=== PATIENT | male | born 1940 | race Caucasian/White ===

== ENCOUNTER 2016-05-02 11:08 | Emergency (ER) | payer OTHER ==
[2016-05-02 11:25] VITALS: BP 142/78; PULSE 70; RESP 16; TEMP 97.5; O2SAT 96
--- NOTE | 2016-05-02 12:37 | UCPHY ---
H & P Time Seen by Provider: 05/02/16 12:19 Patient Type: New HPI/ROS: This patient reports 1st metatarsophalangeal joint pain and swelling reminiscent of a gout episode he had 18 years ago. He reports the current intensity of the pain is 7/10. Pain is but worse with walking and no other exacerbating or alleviating factors are noted. Symptoms started 4 days ago. He has no other associated symptoms. ROS: No fevers. No other constitutional symptoms HEENT: No complaints cardiovascular: No complaints musculoskeletal: No other musculoskeletal complaints 7 point ROS is otherwise negative. Past Medical/Surgical History: Remote history of gout Atrial fibrillation on Eliquis Social History: Patient does eat me to regularly and has a glass of red wine daily. He also had shellfish last night Smoking Status: Former smoker Physical Exam: Physical Exam Vital signs are normal. General: No acute distress Eyes: Pupils equal and react to light. Extraocular motions are intact. Lungs: No respiratory distress. Cardiac: Brisk capillary refill is intact throughout. Pulses are 2+ and symmetric in the affected extremity. Skin: No rash or pallor. Extremities notable for left foot exam Left foot: Patient has moderate swelling of the 1st metatarsophalangeal joint with mild erythema and mild warmth to touch. Symptoms worsen with movement of the great toe. Neuro: Alert and oriented x3 with no sensorimotor deficits. Initial differential diagnosis: Acute gouty attack, in pseudogout, septic joint Constitutional: Initial Vital Signs Temperature (C) 36.4 C 05/02/16 11:22 Heart Rate 70 05/02/16 11:22 Respiratory Rate 16 05/02/16 11:22 Blood Pressure 142/78 H 05/02/16 11:22 O2 Sat (%) 96 05/02/16 11:22 O2 Delivery Mode Room Air Allergies/Adverse Reactions: No Known Allergies Allergy (Verified 05/02/16 11:20) Home Medications: Medication Instructions Recorded Aspirin 04/07/15 Ambien PRN 08/26/15 Cartia Xt 08/26/15 Losartan Potassium 08/26/15 Sertraline HCl 08/26/15 Atorvastatin Calcium 05/02/16 Eliquis 05/02/16 predniSONE 60 mg PO DAILY #10 tab 05/02/16 MDM/Departure - MDM ED Course/Re-evaluation: This patient appears clinically well with symptoms classic for gout in the setting of patient with prior gout and indulgence in shellfish, red meat and wine. I do not think there is significant evidence for septic joint or other concerning findings. Colchicine is contraindicated due to interaction with his diltiazem. Indocin is contraindicated due to interaction with per Pradaxa. Will therefore treat him with prednisone. I counseled regarding this - Depart Disposition: Home, Routine, Self-Care Clinical Impression: Gout attack Qualifiers: Gout site: foot Gout etiology: idiopathic Laterality: left Qualifier Code: ( M10.072) Idiopathic gout, left ankle and foot Instructions: Low Purine Diet (ED), Gout (ED) Additional Instructions: Diagnosis: Gout attack Plan: Decrease your meat intake Stop drinking red wine until symptoms resolve Drink plenty fluids Prednisone as prescribed Tylenol in addition for pain if needed Follow up with her primary care physician for any ongoing symptoms Return for any significant worsening despite the treatment plan Prescriptions: predniSONE 60 mg PO DAILY #10 tab Referrals: Salas Santiago DO [Primary Care Provider] - As per Instructions - PQRS PQRS Measurement: 134: Depression screening and followup, PRIME MD-PHQ2 (12 years and older) Over the last 2 weeks, how often have you been bothered by any of the following problems? 1. Feeling down, depressed, or hopeless? 2. Little interest or pleasure in doing things? Patient answered no to both 1 and 2 130: Documentation of medications. Reviewed all patient medications, doses, route and frequency. 226: Do you smoke? [No.] 47: 65 and older: Advanced care planning. Patient designates surrogate decision maker as spouse. 51: 18 years old and older with diagnosis of COPD, spirometry performance. NA 52: 18 years old and older with COPD and symptoms of COPD or FEV1<60% predicted prescribed a B Agonist. NA
== END 2016-05-02 12:50 | disposition home or self-care (01) ==
LOC: CED 11:08
DX: M10.072 Idiopathic gout, left ankle and foot (principal); I48.91 Unspecified atrial fibrillation; Z79.01 Long term (current) use of anticoagulants; Z87.891 Personal history of nicotine dependence
CPT/HCPCS: G0463-PO

== ENCOUNTER → 2016-09-16 | Outpatient (CLI) | payer OTHER | LOC: BHFA 10:00 | PROVIDERS: ATTEND Internal Medicine Cardiovascular Disease | DX: I48.91 Unspecified atrial fibrillation (principal) ==

== ENCOUNTER → 2017-07-08 | Outpatient (CLI) | payer OTHER | LOC: CIMAGING 11:36 | PROVIDERS: ATTEND Family Medicine | DX: M25.851 Other specified joint disorders, right hip (principal); M25.852 Other specified joint disorders, left hip | CPT/HCPCS: 73521-PO ==

== ENCOUNTER 2017-08-08 09:27 | Observation (INO) | payer OTHER ==
[2017-08-08] MEDS ORDERED: PANTOPRAZOLE SODIUM 40 MG VIAL IVP ONE (09:53)
[2017-08-08] MEDS ORDERED: NS 500 ML IV ONE ×2 (09:53→10:44)
[2017-08-08 09:57] LABS: PLATELET COUNT 149 10^3/uL (150-400)
--- NOTE | 2017-08-08 10:06 | EDPHY ---
H & P Time Seen by Provider: 08/08/17 09:52 HPI/ROS: HPI Lightheaded, low blood pressure. 77-year-old male by private vehicle with family. His daughter who accompanies him is a nurse. The patient reports that on Tuesday he had black tarry stools. He is on Eliquis, twice daily for atrial fibrillation without valvular disease. He reports he stopped taking his Eliquis Tuesday evening and this improved but reports his stool was somewhat blackish through the weekend. He started taking his Eliquis again last night and then again this morning. This morning he presents with complaint of lightheadedness which is worse with standing from sitting and a low blood pressure reading at home he reports he had a bowel movement of black tarry stool. He brought a sample with him. Denies any gross rectal bleeding. No associated nausea and vomiting. He has been eating normally. No other complaints. ROS: Constitutional: No fever, no chills. No weakness. Eyes: No discharge. No changes in vision. ENT: No sore throat. No nasal congestion or rhinorrhea. Respiratory: No cough. No shortness of breath. Cardiac: No chest pain, no palpitations. Gastrointestinal: No abdominal pain, no vomiting, no diarrhea. As above. Genitourinary: No hematuria. No dysuria or increased frequency with urination. Musculoskeletal: No back pain. No neck pain. No myalgias or arthralgias. Skin: No rashes. Neurological: No headache. No focal weakness or altered sensation. Past medical history: Atrial fibrillation without valvular disease, on Eliquis. Dr. Santiago is his primary care physician. Social history: Nonsmoker. No alcohol. Here with family. Physical Exam: General Appearance: Alert, no distress. This patient is responding to questions appropriately and in full sentences. This patient appears well- hydrated and well-nourished. Eyes: Pupils equal and round no pallor or injection. No lid edema, erythema or injection. Respiratory: There are no retractions, lungs are clear to auscultation with good air movement bilaterally. Cardiovascular: Regular rate and rhythm. No murmur. Gastrointestinal: Abdomen is soft and nontender, no masses, bowel sounds normal. No focal tenderness at McBurney's point. No Minaya sign. Neurological: Motor sensory function is grossly intact. Cranial nerves are normal. Gait is normal. Skin: Warm and dry, no rashes. Musculoskeletal: Neck is supple and nontender. Extremities are symmetrical. All joints range without pain or impingement. Psychiatric: No agitation. No depression. Database: EKG: EKG time is 10:20 a.m.; EKG shows a narrow complex atrial fibrillation with ventricular rate average of 77. Borderline R-wave progression in anterior precordial leads. The QRS, QT intervals are within normal limits. There are no ST-T wave changes indicative of ischemic or injury pattern. No evidence of right heart strain. Interpreted by me. Imaging: Procedures: Emergency department course: IV placed x2. Vital signs reviewed. Initial blood pressure is 83/52. Vital signs otherwise normal. Heart rate is 79 and he is afebrile. Abdominal exam is benign. Stool sample is melenic. Sent for occult blood testing. Patient typed and screened. He will be given Protonix IV 80 mg initially then 40 mg q.6 hours. He will be started on IV normal saline with 500 cc bolus given initially. 10:00 a.m., initial H&H is 8.7/26. Hospitalist paged for transfer and admission. 10:10 a.m., spoke with hospitalist, patient accepted for admission by Dr. Sharon Rowan. He will be admitted to the step-down unit initially. He will be transferred by ambulance. This plan was discussed with him and his family. All of their questions were answered. 10:45 a.m., patient re-evaluated, resting comfortably at this time. Blood pressure is currently 95/56. monitoring manager shows a narrow complex rhythm with ventricular rate average of 67. He has no complaints currently. He will be given an additional 500 cc of IV normal saline over the next hour. Waiting on ambulance transfer. 11:00 a.m., blood pressure 110/73. Patient is stable for transfer by ambulance. I have filled out the appropriate transfer paperwork. Patient transferred in stable condition to [facility]. Differential Diagnosis: The differential diagnosis on this patient includes but is not limited to upper gastrointestinal bleeding, on anticoagulant medication. Hemorrhoids, diverticulosis, lower GI source unlikely. This represents a partial list of diagnoses considered. These considerations are based on history, physical exam , past history, reassessment and diagnostic testing. Smoking Status: Former smoker Constitutional: Initial Vital Signs Temperature (C) 36.9 C 08/08/17 09:40 Heart Rate 79 08/08/17 09:40 Respiratory Rate 18 08/08/17 09:40 Blood Pressure 83/52 L 08/08/17 09:40 O2 Sat (%) 97 08/08/17 09:40 O2 Delivery Mode Room Air Allergies/Adverse Reactions: No Known Allergies Allergy (Verified 08/08/17 09:38) Home Medications: Medication Instructions Recorded Aspirin 04/07/15 Ambien PRN 08/26/15 Cartia Xt 08/26/15 Losartan Potassium 08/26/15 Sertraline HCl 08/26/15 Atorvastatin Calcium 05/02/16 Eliquis 05/02/16 Medical Decision Making - Data Points Laboratory Results: Laboratory Results 08/08/17 09:54 08/08/17 09:54 08/08/17 08/08/17 08/08/17 09:54 09:54 09:30 WBC 6.81 10^3/uL 10^3/uL (3.80-9.50) RBC 2.67 10^6/uL L 10^6/uL (4.40-6.38) Hgb 8.7 g/dL L g/dL (13.7-17.5) Hct 26.0 % L % (40.0-51.0) MCV 97.4 fL fL (81.5-99.8) MCH 32.6 pg pg (27.9-34.1) MCHC 33.5 g/dL g/dL (32.4-36.7) RDW 14.5 % % (11.5-15.2) Plt Count 149 10^3/uL L 10^3/uL (150-400) MPV 9.8 fL fL (8.7-11.7) Neut % (Auto) 66.3 % % (39.3-74.2) Lymph % (Auto) 21.6 % % (15.0-45.0) [place] % (Auto) 10.4 % % (4.5-13.0) Eos % (Auto) 0.7 % % (0.6-7.6) Baso % (Auto) 0.6 % % (0.3-1.7) Nucleat RBC Rel Count 0.0 % % (0.0-0.2) Absolute Neuts (auto) 4.51 10^3/uL 10^3/uL (1.70-6.50) Absolute Lymphs (auto) 1.47 10^3/uL 10^3/uL (1.00-3.00) Absolute Monos (auto) 0.71 10^3/uL 10^3/uL (0.30-0.80) Absolute Eos (auto) 0.05 10^3/uL 10^3/uL (0.03-0.40) Absolute Basos (auto) 0.04 10^3/uL 10^3/uL (0.02-0.10) Absolute Nucleated RBC 0.00 10^3/uL 10^3/uL (0-0.01) Immature Gran % 0.4 % % (0.0-1.1) Immature Gran # 0.03 10^3/uL 10^3/uL (0.00-0.10) PT INR APTT Sodium 142 mEq/L mEq/L (135-145) Potassium 4.2 mEq/L mEq/L (3.3-5.0) Chloride 107 mEq/L mEq/L (97-110) Carbon Dioxide 24 mEq/l mEq/l (22-31) Anion Gap 11 mEq/L mEq/L (8-16) BUN 33 mg/dL H mg/dL (7-23) Creatinine 1.2 mg/dL mg/dL (0.7-1.3) Estimated GFR 59 Glucose 123 mg/dL H mg/dL (70-100) Calcium 8.7 mg/dL mg/dL (8.5-10.4) Total Bilirubin 0.4 mg/dL mg/dL (0.1-1.4) Conjugated Bilirubin 0.3 mg/dL mg/dL (0.0-0.5) Unconjugated Bilirubin 0.1 mg/dL mg/dL (0.0-1.1) AST 15 IU/L L IU/L (17-59) ALT 20 IU/L L IU/L (21-72) Alkaline Phosphatase 54 IU/L IU/L (38-126) Total Protein 6.1 g/dL L g/dL (6.3-8.2) Albumin 3.3 g/dL L g/dL (3.5-5.0) Patient ABO/Rh Pending Antibody Screen Pending 08/08/17 09:30 WBC RBC Hgb Hct MCV MCH MCHC RDW Plt Count MPV Neut % (Auto) Lymph % (Auto) [place] % (Auto) Eos % (Auto) Baso % (Auto) Nucleat RBC Rel Count Absolute Neuts (auto) Absolute Lymphs (auto) Absolute Monos (auto) Absolute Eos (auto) Absolute Basos (auto) Absolute Nucleated RBC Immature Gran % Immature Gran # PT 16.1 SEC H SEC (12.0-15.0) INR 1.31 H (0.83-1.16) APTT 35.0 SEC SEC (23.0-38.0) Sodium Potassium Chloride Carbon Dioxide Anion Gap BUN Creatinine Estimated GFR Glucose Calcium Total Bilirubin Conjugated Bilirubin Unconjugated Bilirubin AST ALT Alkaline Phosphatase Total Protein Albumin Patient ABO/Rh Antibody Screen Medications Given: Discontinued Medications Sodium Chloride (Ns) 500 mls @ 0 mls/hr IV EDNOW ONE; Wide Open PRN Reason: Protocol Stop: 08/08/17 09:54 Last Admin: 08/08/17 10:00 Dose: 500 mls Sodium Chloride (Ns) 500 mls @ 0 mls/hr IV EDNOW ONE; Wide Open PRN Reason: Protocol Stop: 08/08/17 10:45 Last Admin: 08/08/17 10:56 Dose: 500 mls Pantoprazole Sodium (Protonix) 80 mg IVP EDNOW ONE Stop: 08/08/17 09:54 Last Admin: 08/08/17 10:00 Dose: 80 mg Departure - Departure Disposition: [facility] Clinical Impression: Anemia, Gastrointestinal bleeding, upper, Hypotension
--- NOTE | 2017-08-08 10:22 | CPEKG ---
Heart Rate: 77 RR Interval: 779 QRSD Interval: 84 QT Interval: 408 QTC Interval: 462 QRS [place]: -11 T Wave [place]: 22 EKG Severity - ABNORMAL ECG - EKG Impression: ATRIAL FIBRILLATION, V-RATE 56-97 EKG Impression: PROBABLE INFERIOR INFARCT, AGE INDETERMINATE EKG Impression: BORDERLINE R WAVE PROGRESSION, ANTERIOR LEADS Electronically Signed By: Qi Cantor 08-Aug-2017 11:10:54
[2017-08-08 10:32] LABS: INR 1.31 (0.83-1.16); PROTIME(PATIENT) 16.1 SEC (12.0-15.0)
[2017-08-08] MEDS ORDERED: ONDANSETRON DISINTEGRATING 4 MG TAB PO PRN (13:50)
[2017-08-08] MEDS ORDERED: ONDANSETRON 4 MG/2 ML VIAL IVP PRN (13:50)
[2017-08-08] MEDS ORDERED: HYDROCODONE/APAP 5/325 TAB PO PRN (13:50)
[2017-08-08] MEDS ORDERED: ACETAMINOPHEN 325 MG TAB PO PRN (13:50)
[2017-08-08] MEDS: NS 1,000 ML IV SCH (14:00)
[2017-08-08 14:25] LABS: PLATELET COUNT 126 10^3/uL (150-400)
[2017-08-08] MEDS ORDERED: PANTOPRAZOLE SODIUM 40 MG VIAL IVP SCH (15:53)
[2017-08-08] MEDS ORDERED: ZOLPIDEM TARTRATE 5 MG TAB PO PRN (17:22)
--- NOTE | 2017-08-08 18:04 | GHP ---
[f rep st] HISTORY AND PHYSICAL DATE OF ADMISSION: 08/08/2017 CHIEF COMPLAINT: Black stools. HISTORY OF PRESENT ILLNESS: The patient is a pleasant 77-year-old gentleman with a past medical hist ory of atrial fibrillation, currently on Eliquis for anticoagulation who started noticing dark colore d loose stools approximately 3 days prior to coming into the hospital. He recognized that this could indicate an intestinal bleed, so he stopped taking Eliquis and the darkness of the stools seemed to subside. He subsequently then did resume Eliquis 1 day prior to coming into the hospital today. He states early this morning, he started feeling quite lightheaded when he was trying to ambulate. He c hecked his blood pressures at home and had systolic blood pressure readings in the 70s. At that poin t time, he presented to [facility] for further evaluation. His initial blood work was notable for hemoglobi n of 8.7. His hemoglobin previously has been documented within the normal range. Hemoccult was posi tive as well. Fortunately, his blood pressure did respond to IV fluids, and after stabilization, he was then transferred to [facility] for further evaluation and treatment. The patient has been having recent back pain and recently underwent a steroid injection. He does sta te that he has been taking Aleve regularly over the past couple of weeks to address this pain. PAST MEDICAL HISTORY: 1. Atrial fibrillation. 2. Hypertension. 3. Hyperlipidemia. 4. Depression, anxiety. PAST SURGICAL HISTORY: Appendectomy. MEDICATIONS: This medication list is taken from his ambulatory orders list. 1. Aspirin 81 mg daily. 2. Eliquis 5 mg daily. 3. Atorvastatin 80 mg nightly. 4. Diltiazem ER 120 mg daily. 5. Losartan 25 mg nightly. 6. Sertraline 75 mg daily. 7. Trazodone 75 mg nightly. 8. Zolpidem 5 mg nightly as needed. ALLERGIES: No known drug allergies. FAMILY HISTORY: Mother and father both of uncertain causes. SOCIAL HISTORY: The patient is currently . He has several children. His daughter who is wit h him at the bedside today is a registered nurse. He is a nonsmoker. CODE STATUS: Full code status. REVIEW OF SYSTEMS: CONSTITUTIONAL: No complaints of any fevers or chills. ENT: No recent upper re spiratory illnesses. CARDIOVASCULAR: No complaints of any chest pains, palpitations, or syncopal ep isodes, but he did have lightheadedness. RESPIRATORY: He does feel somewhat more short of breath wi th exertion today. No productive cough. GI: No complaints of any focal abdominal pains. No nausea or vomiting. Positive for black stools. No bloody stools. : No reports of any difficulty with urination. NEUROLOGIC: No complaints of any headaches or focal weakness. HEMATOLOGIC: No history of any bleeding complications previously. No deep vein thrombosis or pulmonary emboli. PSYCHIATRIC: He is currently on SSRI therapy. ENDOCRINE: No history of polyuria or heat intolerance. SKIN: N o new skin rashes or petechia. MUSCULOSKELETAL: No new focal pains today, but he has been having re cent low back and hip pain. PHYSICAL EXAMINATION: VITAL SIGNS: Temperature 36.7, blood pressure on initial presentation to [facility] was 83/52, which did improve to most recently at 133/78, heart rate 60, respirat ions 12, saturating 100% on room air. GENERAL: The patient appears comfortable. He is sitting in a chair at the bedside visiting with family. He is awake, alert, conversant, in no acute distress. H EENT: Extraocular movements appear intact. No scleral icterus is noted. NECK: No thyroid enlargem ent appreciated. CHEST: Clear on auscultation with normal respiratory effort. HEART: Irregularly irregular. No significant murmur is appreciated. ABDOMEN: Soft, nontender, nondistended. Normal b owel sounds. : No Moya catheter in place. EXTREMITIES: No significant pitting edema or calf pa in with palpation noted. NEUROLOGIC: Cranial nerves 2-12 appear grossly intact with 5/5 strength in all extremities LABORATORY DATA: White blood cell count 6, hemoglobin 8.7, which has decreased to 7.7 upon recheck h ere, platelets are 149. Sodium 142, potassium 4.2, chloride 107, bicarb 24, BUN 33, creatinine 1.2, glucose 123. PTT 35, INR 1.3. Hemoccult positive. AST 15, ALT 20, alkaline phosphatase 54, bilirub in 0.4. ASSESSMENT/PLAN: 1. Gastrointestinal bleed. Suspecting upper gastrointestinal bleed and likely precipitated by recen t nonsteroidal anti-inflammatory drug use, along with current use of aspirin and Eliquis. I reviewed the case with Dr. Damon. The tentative plan is for endoscopy tomorrow on 08/09 unless he becomes uns table or starts having grossly bloody stools. Fortunately, he is more hemodynamically stable with bl ood pressures up in the 130 range. I will recheck a hemoglobin at midnight tonight. Otherwise, he h as been started on intravenous Protonix and is n.p.o. in anticipation of endoscopy tomorrow. 2. Acute blood-loss anemia. Pending a repeat hemoglobin at midnight tonight. 3. Hypotension, improved. Continue with intravenous fluids overnight. 4. Atrial fibrillation. Patient is on diltiazem for rate control and Eliquis for anticoagulation. Both of these are on hold currently in light of bleeding and hypotension. 5. Hypertension. We will continue to hold diltiazem, along with losartan. 6. Hyperlipidemia. Patient takes atorvastatin in the outpatient setting. 7. Depression, anxiety. I have written to continue with Zoloft once he has a diet in place. 8. Deep venous thrombosis prophylaxis. Compression devices while immobile. Otherwise, hold heparin or Lovenox. DISPOSITION: I will admit him under observation status. /[id number]/MODL
[2017-08-08] MEDS ORDERED: ATORVASTATIN CALCIUM 40 MG TAB PO SCH (21:00)
[2017-08-08] MEDS ORDERED: traZODone 50 MG TAB PO SCH (21:00)
[2017-08-08] MEDS: PANTOPRAZOLE SODIUM 40 MG VIAL IVP SCH (21:39)
[2017-08-09] MEDS: NS 1,000 ML IV SCH (03:07)
[2017-08-09 03:21] LABS: PLATELET COUNT 120 10^3/uL (150-400)
[2017-08-09] MEDS ORDERED: LR 1,000 ML IV ONE (06:39)
--- NOTE | 2017-08-09 07:19 | PDANEPAE ---
ANE History of Present Illness EGD ANE Past Medical History - Cardiovascular History Hx Hypertension: Yes Hx Arrhythmias: Yes Hx Chest Pain: No Hx Coronary Artery / Peripheral Vascular Disease: No Hx CHF / Valvular Disease: No Hx Palpitations: No - Pulmonary History Hx COPD: No Hx Asthma/Reactive Airway Disease: No Hx Recent Upper Respiratory Infection: No Hx Oxygen in Use at Home: No Hx Sleep Apnea: No Sleep Apnea Screening Result - Last Documented: Negative - Endocrine History Hx Diabetes: No Hyperthyroid: No Obesity: no - Chronic Pain History Chronic Pain: No ANE Review of Systems Review of Systems: - Exercise capacity METS (RN): 4 METS ANE Patient History - Allergies Allergies/Adverse Reactions: No Known Allergies Allergy (Verified 08/08/17 09:38) - Home Medications Home Medications: Aspirin [Aspirin 81mg (*)] 81 mg PO DAILY 04/07/15 [Last Taken 08/08/17] Diltiazem HCl [Cartia Xt] 120 mg PO HS 08/26/15 [Last Taken 08/07/17] Losartan Potassium [Cozaar 25 mg (*)] 25 mg PO HS 08/26/15 [Last Taken 08/07/17] Sertraline HCl [Zoloft 50mg (*)] 75 mg PO DAILY 08/26/15 [Last Taken 08/08/17] Zolpidem Tartrate [Ambien] 5 mg PO HS PRN 08/26/15 [Last Taken Unknown] Apixaban [Eliquis] 5 mg PO DAILY 05/02/16 [Last Taken 08/08/17] Atorvastatin Calcium [Lipitor 40 mg (*)] 80 mg PO HS 05/02/16 [Last Taken ] Acetaminophen [Tylenol 325mg (*)] 325 mg PO DAILY PRN 08/08/17 [Last Taken 08/08] Hydrocodone/Acetaminophen [Velma 5/325 (*)] 1 each PO Q4-6PRN PRN 08/08/17 [ Last Taken 08/01/17] [place]-3 Fatty Acids [Fish Oil 1000 mg (*)] 1,000 mg PO DAILY 08/08/17 [Last Taken 08/08/17] Psyllium Husk (with Sugar) [Metamucil Packet] 1 each PO HS 08/08/17 [Last Taken 08/07/17] traZODone [traZODONE 50MG (*)] 75 mg PO HS 08/08/17 [Last Taken 08/07/17] - NPO status NPO Since - Liquids (Date): 08/08/17 NPO Since - Liquids (Time): 08:15 NPO Since - Solids (Date): 08/08/17 - Smoking Hx Smoking Status: Former smoker ANE Labs/Vital Signs - Labs Result Diagrams: 08/09/17 03:10 08/09/17 03:10 - Vital Signs Blood Pressure: 154/89 Heart Rate: 99 Respiratory Rate: 14 O2 Sat (%): 96 Height: 172.72 cm Weight: 83.91 kg ANE Physical Exam - Airway Mouth exam: dentures - Pulmonary Pulmonary: no respiratory distress, no rales or rhonchi - Cardiovascular Cardiovascular: irregularly irregular ANE Anesthesia Plan Anesthesia Plan: GA with mask
[2017-08-09] MEDS ORDERED: LIDOCAINE 2% 5 ML SDV ONE (07:23)
[2017-08-09] MEDS ORDERED: PROPOFOL/EMULSION 500 MG/50 ML BOTTLE IV ONE (07:23)
[2017-08-09] MEDS ORDERED: NALOXONE HCL 0.4 MG/ML INJ IVP PRN (07:45)
--- NOTE | 2017-08-09 07:46 | POSTANESTH ---
Post Anesthetic Evaluation Cardiovascular Status: Similar to Pre-Op Cond Respiratory Status: Normal, Stable Level of Consciousness/Mental Status: Can Participate in Eval Pain Control: Adequate, Prn Tx Ordered Nausea/Vomiting Control: Adequate, Prn Tx Ordered Complications Possibly Related to Anesthesia: None Noted
[2017-08-09 08:24] VITALS: BP 122/80
--- NOTE | 2017-08-09 08:27 | GCON ---
[f rep st] CONSULTATION DATE OF CONSULTATION: 08/09/2017 CONSULTING PHYSICIAN: Stanley Archer MD. REASON FOR CONSULT: Melenic stools. CHIEF COMPLAINT: Melenic stools. HISTORY OF PRESENT ILLNESS: Jcarlos is a 77-year-old male with a history of atrial fibrillation on Eliquis, NSAID use who presents to [facility] with complaints of melenic stools as well as weakness. The patient was in his normal state of health until approximately 3 days ago when he noticed that his stools were black in color. Due to this, he stopped his Eliquis with some improvement of his symptoms. He restarted his Eliquis 1 day prior to admission, and then and, noted black, tarry stools. He also had significant fatigue and got lightheaded walking up steps, and thus, came for further evaluation. He denies any exacerbating or alleviating factors to his symptoms. He denies any dysphagia, odynophagia, nausea, vomiting or abdominal pain. His last colonoscopy was approximately 13 years ago in [place]. He denies any chest pain, shortness of breath or prior episodes of GI bleeding. Patient had does take a daily aspirin each day and has been taking Aleve for recent hip pain. I am asked by Dr. Archer to evaluate Jcarlos in consultation regarding his melenic stools. PAST MEDICAL HISTORY: 1. Atrial fibrillation. 2. Hypertension. 3. Hyperlipidemia. 4. Depression. 5. Anxiety. PAST SURGICAL HISTORY: Appendectomy. ALLERGIES: NKDA. MEDICATIONS: 1. Aleve as needed. 2. Aspirin 81 milligrams a day. 3. Eliquis 5 milligrams a day. 4. Atorvastatin 80 milligrams at night. 5. Diltiazem extended release 120 milligrams daily. 6. Losartan 25 milligrams at night. 7. Sertraline 7 milligrams daily. 8. Trazodone 10 milligrams at night. 9. Zolpidem as needed. FAMILY HISTORY: No history of colon polyps or cancer. SOCIAL HISTORY: . Several children. Positive alcohol. No cigarette use. REVIEW OF SYSTEMS: A 14-point comprehensive review of systems was asked. Pertinent positives in the HPI. PHYSICAL EXAM: VITAL SIGNS: Blood pressure 154/89, heart rate 89, temperature is 36.7, respiratory rate is 14. GENERAL: Awake, alert and oriented x3, in no distress. HEENT: Anicteric sclerae. Moist mucosa. NECK: No JVD. CARDIOVASCULAR: Irregular rhythm. No murmurs appreciated. LUNGS: Clear to auscultation bilaterally. ABDOMEN: Soft, nontender, nondistended. Positive bowel sounds. No guarding, no rebound. EXTREMITIES: No clubbing, cyanosis or edema. NEUROLOGIC: Cranial nerves II-XII are grossly intact. PSYCH: Normal affect. SKIN: No rash. MUSCULOSKELETAL: No joint effusions or deformities noted. LYMPH: No lymphadenopathy. BLOOD WORK: WBCs 5.65, hemoglobin 7.7, hematocrit 23.4, platelets 120. INR 1.31. Sodium 145, potassium 4.1, AST 15, ALT 20, total bilirubin 0.4, alkaline phosphatase 54. ASSESSMENT AND PLAN: 1. Melenic stools- on NSAIDs and Eliquis. At this time, I recommend to proceed with upper endoscopy to delineate the cause of his symptoms. Suspect ulcer disease due to his nonsteroidal antiinflammatory use? If negative, would consider colonoscopy as an outpatient. The risks, benefits and alternatives of the procedure were discussed in great detail with the patient. The risks of infection, bleeding, perforation, and sedation were discussed. 2. Screening colonoscopy. Due for screening colonoscopy and recommend as outpatient. 3. Hypertension. 4. Hyperlipidemia. 5. Depression. 6. Anxiety. Thank you much for this consultation. /[id number]/MODL MTDD
[2017-08-09] MEDS: PANTOPRAZOLE SODIUM 40 MG VIAL IVP SCH (08:54)
[2017-08-09] MEDS ORDERED: SERTRALINE HCL 50 MG TAB PO SCH (09:00)
--- NOTE | 2017-08-09 09:55 | ASMTCMCOM ---
CM Note CM Note Notes: Patient admitted for GI bleed. He had an upper endoscopy today; path pending. He is normally independent, lives with , and has supportive children. I don't anticipate any discharge needs, but Case Management available should they arise. Date Signed: 08/09/2017 09:54 AM Electronically Signed By:Silvia Meyers RN
--- NOTE | 2017-08-09 10:50 | GIREPORT ---
[facility] - Endoscopy Department Patient Name: Jcarlos Kyle Procedure Date: 08/09/2017 7:28 AM Patient Type: Inpatient Attending MD/ ER Physician: Murphy Damon MD Procedure: Upper GI endoscopy Indications: Melena Patient Profile: 77 year old male with a history of NSAID use presents for evaluaiton of melena/post hemorrhagic anemia. Providers: Murphy Damon MD Medicines: Monitored Anesthesia Care Complications: No immediate complications. Estimated blood loss: Minimal. Description of Procedure: After obtaining informed consent, the endoscope was passed under direct vision. Throughout the procedure, the patient's blood pressure, pulse, and oxygen saturations were monitored continuously. The Endoscope was intro duced through the mouth, and advanced to the second part of duodenum. The [facility] er GI endoscopy was accomplished without difficulty. The patient tolerated th e procedure well. Findings: The examined esophagus was normal. A hiatal hernia was present. Patchy moderately erythematous mucosa was found in the gastric body and in the gastric antrum. Biopsies were taken with a cold forceps for histolo gy. Two superficial gastric ulcers were found in the gastric antrum. The la rgest lesion was 4 mm in largest dimension. One superficial duodenal ulcer was found in the duodenal bulb. The lesi on was 3 mm in largest dimension. Estimated Blood Loss: Estimated blood loss was minimal. Post Op Diagnosis: - Normal esophagus. - Hiatal hernia. - Erythematous mucosa in the gastric body and antrum. Biopsied. - Gastric ulcers. - One duodenal ulcer. - Etiology? Suspect from small gastic/duodenal ulcers which have healed . Recommend to monitor H/H and transfuse as needed. Avoid NSAIDs. If no m ore bleeding, recommend colonoscopy as outpatient. Recommendation: - Return patient to [facility] for [facility] care. - Await pathology results. - No aspirin, ibuprofen, naproxen, or other non-steroidal anti-inflamma tory drugs. - Use a proton pump inhibitor PO BID. - Perform a colonoscopy at appointment to be scheduled. - Thank you for allowing me to particpate in the care of your patient. Attending Participation: I personally performed the entire procedure. Murphy Damon MD Murphy Damon MD 08/09/2017 10:50:05 AM This report has been signed electronicallyMurphy Damon MD Number of Addenda: 0 Note Initiated On: 08/09/2017 7:28 AM Total Procedure Duration Time 0 hours 5 minutes 39 seconds [email or web address]
[2017-08-09] MEDS ORDERED: HYDROCODONE/APAP 5/325 TAB PO PRN ×2 (11:31→11:38)
--- NOTE | 2017-08-09 15:50 | GDS ---
[f rep st] DISCHARGE SUMMARY DISCHARGE DIAGNOSES: 1. Nonsteroidal anti-inflammatory drug induced gastric ulcers. 2. Upper gastrointestinal bleed. 3. Atrial fibrillation. 4. Acute blood loss anemia. HISTORY OF PRESENT ILLNESS: The patient is a 77-year-old male with a history of atrial fibrillation on Eliquis who had melena for 3 days prior to coming to the hospital. He stopped taking his Eliquis and the darkness of the stool seemed to subside; however, then retook his Eliquis for [address] arted again. He became lightheaded. Blood pressure at home was systolic 70s. He presented to [facility] a nd was noted to be anemic and heme-positive. Blood pressure responded to IV fluids. HOSPITAL COURSE: He was transferred to [facility]. Gastroenterology was consulted a nd he underwent an EGD this morning, which showed gastric ulcerations of various stages of healing as this was most consistent with NSAID induced gastric ulcer. He had recently been taking Aleve for in creased back and hip pain, but was amenable to stopping it. He will be treated with a proton pump in [facility]. At discharge, it is okay for him to restart his Eliquis in a couple of days. DISCHARGE MEDICATIONS: Please see computer record for full detailed list. New medications Protonix 40 mg p.o. twice daily for 2 weeks, then once p.o. daily. ADDITIONAL DISCHARGE INSTRUCTIONS: 1. Stop Aleve. 2. Stop aspirin unless there is a firm indication. 3. Protonix twice daily for 2 weeks and daily thereafter. 4. Urine resume Eliquis in 2 days. Greater than 30 minutes of time spent arranging this discharge. Patient seen examined by me on day o f discharge. /[id number]/MODL
[2017-08-09] MEDS ORDERED: LOSARTAN POTASSIUM 25 MG TAB PO SCH (21:00)
[2017-08-09] MEDS ORDERED: PANTOPRAZOLE SODIUM 40 MG TAB PO SCH (21:00)
[2017-08-09] MEDS ORDERED: PSYLLIUM METAMUCIL 1 PKT PO SCH (21:00)
[2017-08-09] MEDS ORDERED: DILTIAZEM CD 120 MG CAP PO SCH (21:00)
== END 2017-08-09 13:00 | disposition home or self-care (01) ==
LOC: CED 09:27 → INTOOBSV 10:11 → CEDHOLD 10:11 → F2N 11:03
PROVIDERS: ADMIT Internal Medicine; ATTEND Internal Medicine
PROC: 0DB68ZX Excision of Stomach, Via Natural or Artificial Opening Endoscopic, Diagnostic (ICD-10-PCS; principal; 2017-08-08)
DX: K25.9 Gastric ulcer, unspecified as acute or chronic, without hemorrhage or perforation (principal); K92.2 Gastrointestinal hemorrhage, unspecified; I48.91 Unspecified atrial fibrillation; D62 Acute posthemorrhagic anemia; I95.9 Hypotension, unspecified; K44.9 Diaphragmatic hernia without obstruction or gangrene
CPT/HCPCS: 43239; 93005; G0378; J2704; 80053-PO; 82248-PO; 82270-PO; 85610-PO; 85730-PO; 96374

== ENCOUNTER 2017-10-28 06:06 | Day surgery (SDC) | payer OTHER ==
[~2017-10-28 06:06] MED LIST: ROPIVACAINE 0.2% 80 MG, EPINEPHrine 0.2 MG, KETOROLAC TROMETHAMINE 30 MG in SYRINGE 0 ML IU ONE; TRANEXAMIC ACID 3,000 MG in NS (SYRINGE) 50 ML IRR ONE
[2017-10-28] MEDS ORDERED: DEXAMETHASONE 4 MG/ML VIAL IVP ONE (06:15)
[2017-10-28] MEDS ORDERED: ceFAZolin 2 GM/DEXTROSE 100 ML IV ONE (06:15)
[2017-10-28] MEDS ORDERED: ACETAMINOPHEN 325 MG TAB PO ONE (06:15)
[2017-10-28] MEDS ORDERED: FAMOTIDINE 20 MG TAB PO ONE (06:15)
[2017-10-28] MEDS ORDERED: LR 1,000 ML IV ONE (06:16)
[2017-10-28 06:38] VITALS: BP 151/87
--- NOTE | 2017-10-28 07:18 | PDHPUP ---
History & Physical Update H&P update statement: This history and physical update is based on an assessment of the patient which was completed after admission or registration (within 24 hours), but prior to the surgery/procedure. H&P update: changes noted H&P changes: Pt again cut with clippers in pre op and will have to cancel surgery
== END 2017-10-28 08:00 | disposition home or self-care (01) ==
LOC: UNDOADMIN 06:06 → F3N 06:06 → FSGY 06:06 → EDSTATUS 08:15
PROVIDERS: ATTEND Orthopaedic Surgery
DX: M16.12 Unilateral primary osteoarthritis, left hip (principal); Z53.9 Procedure and treatment not carried out, unspecified reason
CPT/HCPCS: J0171; J0690; J1100; J1885; J2795

== ENCOUNTER 2017-11-16 11:07 | Inpatient (IN) | payer OTHER ==
--- NOTE | 2017-11-16 07:12 | PDHPUP ---
History & Physical Update H&P update statement: This history and physical update is based on an assessment of the patient which was completed after admission or registration (within 24 hours), but prior to the surgery/procedure. H&P update: H&P reviewed & patient examined, no change in patient's condition since H&P completed
[~2017-11-16 11:07] MED LIST changes: +TRANEXAMIC ACID 3,000 MG/50 ML BAG IRR ONE
[2017-11-16] MEDS ORDERED: FAMOTIDINE 20 MG TAB PO ONE (11:31)
[2017-11-16] MEDS ORDERED: ACETAMINOPHEN 325 MG TAB PO ONE (11:31)
[2017-11-16] MEDS ORDERED: ceFAZolin 2 GM/DEXTROSE 100 ML IV ONE (11:31)
[2017-11-16] MEDS ORDERED: DEXAMETHASONE 4 MG/ML VIAL IVP ONE (11:31)
[2017-11-16] MEDS ORDERED: LR 1,000 ML IV ONE (11:32)
[2017-11-16] MEDS ORDERED: MIDAZOLAM 2 MG/2 ML VIAL IVP ONE (12:54)
--- NOTE | 2017-11-16 12:54 | PDANEPAE ---
ANE History of Present Illness OA here for L CRUZ ANE Past Medical History - Cardiovascular History Hx Hypertension: Yes Hx Arrhythmias: Yes Hx Chest Pain: No Hx Coronary Artery / Peripheral Vascular Disease: No Hx CHF / Valvular Disease: No Hx Palpitations: No Cardiovascular History Comment: chronic Afib. hypertensive heart disease without heart failure. cardiomyopathy. hyperlipidemia - Pulmonary History Hx COPD: No Hx Asthma/Reactive Airway Disease: No Hx Recent Upper Respiratory Infection: No Hx Oxygen in Use at Home: No Hx Sleep Apnea: No Sleep Apnea Screening Result - Last Documented: Negative - Neurologic History Hx Cerebrovascular Accident: No Hx Seizures: No Hx Dementia: No - Endocrine History Hx Diabetes: No - Renal History Hx Renal Disorders: No - Liver History Hx Hepatic Disorders: No - Neurological & Psychiatric Hx Hx Neurological and Psychiatric Disorders: Yes Neurological / Psychiatric History Comment: generalized anxiety - Cancer History Hx Cancer: No - Congenital Disorder History Hx Congenital Disorders: No - GI History Hx Gastrointestinal Disorders: Yes Gastrointestinal History Comment: GI BLEED 07/2017 W/ENDOSCOPY - Other Health History Other Health History: partial denture upper - Chronic Pain History Chronic Pain: No (L HIP PAIN) - Surgical History Prior Surgeries: endoscopy - GI BLEED. APPENDECTOMY ANE Review of Systems Review of Systems: - Exercise capacity METS (RN): 5 METS ANE Patient History - Allergies Allergies/Adverse Reactions: No Known Allergies Allergy (Verified 11/16/17 11:56) - Home Medications Home Medications: Diltiazem HCl [Cartia Xt] 120 mg PO HS 08/26/15 [Last Taken 11/15/17] Losartan Potassium [Cozaar 25 mg (*)] 25 mg PO HS 08/26/15 [Last Taken 11/15/17] Sertraline HCl [Zoloft 50mg (*)] 75 mg PO DAILY 08/26/15 [Last Taken 11/16/17 08 :00] Apixaban [Eliquis] 5 mg PO BID 05/02/16 [Last Taken 11/12/17] Atorvastatin Calcium [Lipitor 40 mg (*)] 80 mg PO HS 05/02/16 [Last Taken ] Acetaminophen [Tylenol 325mg (*)] 325 mg PO DAILY PRN 08/08/17 [Last Taken 11/16 07:00] Hydrocodone/Acetaminophen [Center Line 5/325 (*)] 1 each PO Q4-6PRN PRN 08/08/17 [ Last Taken 1 Month Ago ~09/27/17] [place]-3 Fatty Acids [Fish Oil 1000 mg (*)] 1,000 mg PO DAILY 08/08/17 [Last Taken 10/26/17] Psyllium Husk (with Sugar) [Metamucil Packet] 1 each PO HS 08/08/17 [Last Taken 11/15/17] traZODone [traZODONE 50MG (*)] 50 - 75 mg PO HS 08/08/17 [Last Taken 11/15/17] Metoprolol Succinate Xr [Toprol Xl 25 mg (*)] 25 mg PO DAILY 09/20/17 [Last Taken 11/16/17 08:00] Tears/Dextran 70/Hypromellose [Natural Balance Tears (*)] 1 drop EACHEYE Q2 PRN 09/20/17 [Last Taken 11/02/17] Zolpidem Tartrate [Ambien 5MG (*)] 5 mg PO HS PRN 11/07/17 [Last Taken 11/12/17] - NPO status NPO Since - Liquids (Date): 11/16/17 NPO Since - Liquids (Time): 10:00 NPO Since - Solids (Date): 11/15/17 NPO Since - Solids (Time): 19:00 - Anes Hx Anes Hx: no prior problems - Smoking Hx Smoking Status: Former smoker - Alcohol Use Alcohol Use: Occasionally - Family Anes Hx Family Anes Hx: none Family Hx Anesthesia Complications: none ANE Labs/Vital Signs - Vital Signs Blood Pressure: 136/93 Heart Rate: 63 Respiratory Rate: 16 O2 Sat (%): 92 Height: 172.27 cm Weight: 83.915 kg ANE Physical Exam - Airway Neck exam: FROM Mallampati Score: Class 2 Mouth exam: normal dental/mouth exam - Pulmonary Pulmonary: no respiratory distress, clear to auscultation - Cardiovascular Cardiovascular: regular rate and rhythym, no murmur, rub, or gallop - ASA Status ASA Status: III ANE Anesthesia Plan Anesthesia Plan: GA with mask, spinal Total IV Anesthesia: Yes
[2017-11-16] MEDS ORDERED: BUPIVACAINE/DEXTROSE 7.5MG/ML 2 ML SPINAL AMP SP ONE (13:17)
[2017-11-16] MEDS ORDERED: PROPOFOL/EMULSION 500 MG/50 ML BOTTLE IV ONE ×2 (13:30→13:49)
[2017-11-16] MEDS ORDERED: ONDANSETRON DISINTEGRATING 4 MG TAB PO PRN (13:39)
[2017-11-16] MEDS ORDERED: CYCLOBENZAPRINE 10 MG TAB PO PRN (13:39)
[2017-11-16] MEDS ORDERED: METOCLOPRAMIDE 10 MG/2 ML VIAL IVP PRN (13:39)
[2017-11-16] MEDS ORDERED: BISACODYL 10 MG SUPP PR PRN (13:39)
[2017-11-16] MEDS ORDERED: PROMETHAZINE HCL 25 MG/ML INJ IVP PRN (13:39)
[2017-11-16] MEDS ORDERED: diphenhydrAMINE 25 MG CAP PO PRN (13:39)
[2017-11-16] MEDS ORDERED: POLYETHYLENE GLYCOL 3350 17 GM PKT PO PRN (13:39)
[2017-11-16] MEDS ORDERED: PROMETHAZINE HCL 25 MG SUPPR PR PRN (13:39)
[2017-11-16] MEDS ORDERED: LACTULOSE 20 GM/30 ML UDCUP PO PRN (13:39)
[2017-11-16] MEDS ORDERED: ONDANSETRON 4 MG/2 ML VIAL IVP PRN ×2 (13:39→14:43)
[2017-11-16] MEDS ORDERED: MAGNESIUM HYDROXIDE 30 ML UDCUP PO PRN (13:39)
[2017-11-16] MEDS ORDERED: DIPHENOXYLATE/ATROPINE LOMOTIL 1 TAB PO PRN (13:39)
[2017-11-16] MEDS ORDERED: TEMAZEPAM 15 MG CAP PO PRN (13:39)
[2017-11-16] MEDS ORDERED: ZOLPIDEM TARTRATE 5 MG TAB PO PRN (13:40)
[2017-11-16] MEDS ORDERED: LR 1,000 ML IV SCH (14:00)
[2017-11-16] MEDS ORDERED: DIAZEPAM 5 MG/ML 1 ML SYR IVP PRN (14:43)
[2017-11-16] MEDS ORDERED: HYDROCODONE/APAP 5/325 TAB PO PRN (14:43)
[2017-11-16] MEDS ORDERED: NALOXONE HCL 0.4 MG/ML INJ IVP PRN (14:43)
[2017-11-16] MEDS ORDERED: oxyCODONE IR 5 MG TAB PO PRN (14:43)
[2017-11-16] MEDS ORDERED: HYDROmorphONE/DILAUDID 1 MG/ML INJ IVP PRN (14:43)
[2017-11-16] MEDS ORDERED: fentaNYL 100 MCG/2 ML INJ IVP PRN (14:43)
--- NOTE | 2017-11-16 14:45 | POSTOPPROG ---
Post Op Note Date of Operation: 11/16/17 Surgeon: Jennifer Wilder Sandstone Inspector Repairer: tray wilder PA-C Anesthesiologist: Dr. Hughes Anesthesia: Spinal Pre-op Diagnosis: left hip OA Post-op Diagnosis: same Indication: left hip pain Procedure: L CRUZ ant approach Findings: severe hip OA Inf/Abcess present in the surg proc area at time of surgery?: No EBL: 100-500
--- NOTE | 2017-11-16 14:46 | POSTANESTH ---
Post Anesthetic Evaluation Cardiovascular Status: Normal, Stable, Similar to Pre-Op Cond Respiratory Status: Normal, Stable, Similar to Pre-op Cond. Level of Consciousness/Mental Status: Can Participate in Eval, Alert and Oriented Pain Control: Adequate, Prn Tx Ordered Nausea/Vomiting Control: Adequate, Prn Tx Ordered Complications Possibly Related to Anesthesia: None Noted
[2017-11-16] MEDS ORDERED: TEARS/DEXTRAN 70/HYPROMELLOSE 15 ML OPHT.BTL EACHEYE PRN (14:53)
--- NOTE | 2017-11-16 14:58 | PDMN ---
Medical Necessity Medical necessity: [facility] CPT 16139 CRUZ [facility] IP only, 77 y/o s/p left total hip , anterior
[2017-11-16] MEDS ORDERED: HYDROCODONE/APAP 5/325 TAB ONE (17:21)
[2017-11-16] MEDS ORDERED: LABETALOL HCL 5 MG/ML 20 ML MDV IVP PRN (19:00)
[2017-11-16] MEDS: ACETAMINOPHEN 325 MG TAB PO SCH (19:45)
[2017-11-16] MEDS ORDERED: DILTIAZEM CD 120 MG CAP PO SCH (21:00)
[2017-11-16] MEDS ORDERED: ATORVASTATIN CALCIUM 40 MG TAB PO SCH (21:00)
[2017-11-16] MEDS ORDERED: traZODone 50 MG TAB PO SCH (21:00)
[2017-11-16] MEDS ORDERED: LOSARTAN POTASSIUM 25 MG TAB PO SCH (21:00)
[2017-11-16] MEDS: SENNOSIDES/DOCUSATE SODIUM TAB PO SCH (21:19)
[2017-11-16] MEDS: FAMOTIDINE 20 MG TAB PO SCH (21:21)
[2017-11-16] MEDS: ceFAZolin 2 GM/DEXTROSE 100 ML IV SCH (22:35)
[2017-11-17] MEDS: ACETAMINOPHEN 325 MG TAB PO SCH ×3 (00:09→11:36)
[2017-11-17] MEDS: oxyCODONE IR 5 MG TAB PO PRN ×2 (00:09→11:38)
[2017-11-17] MEDS: ceFAZolin 2 GM/DEXTROSE 100 ML IV SCH (05:11)
[2017-11-17 08:27] VITALS: BP 138/96
[2017-11-17] MEDS: SENNOSIDES/DOCUSATE SODIUM TAB PO SCH (08:30)
[2017-11-17] MEDS: FAMOTIDINE 20 MG TAB PO SCH (08:31)
--- NOTE | 2017-11-17 08:55 | SOAPPROG ---
SOAP Progress Note Assessment/Plan: Assessment: Patient is doing well POD 1 s/p L CRUZ Pain management: pain is well controlled on oral pain meds. VTE ppx: recommend resuming eliquis, cont CHUYITA and SCDs Anemia: level is expected initially postop. Asymptomatic. Continue to monitor D/c planning: d/c to home today pending release from PT postop urinary retention: straight cath'd yesterday, resolved today HTN: diastolic BP >100 multiple times yesterday. Floor RN called me yesterday afternoon when she received patient last evening at shift change. PACU nurse had not tried to decrease diastolic BP. I called and spoke with anesthesia regarding patient. They recommended labetalol IVP, order was placed, BP improved last evening. Encouraged patient to follow up with PCP in outpatient setting to work on better BP control. patient understands. He denies chest pain. Plan: 11/17/17 08:52 Subjective: patient is doing well, denies SOb, chest pain and N/V. Objective: Vital Signs Temp Pulse Resp BP Pulse Ox 36.5 C 83 14 138/96 H 93 11/17/17 08:25 11/17/17 08:25 11/17/17 08:25 11/17/17 08:25 11/17/17 08:25 Laboratory Results 11/17/17 05:16 11/17/17 05:16 11/16/17 11/17/17 11/18/17 05:59 05:59 05:59 Intake Total 900 Output Total 1010 Balance -110 LLE; incision dressing is clean and dry, NVI, +pf/df ICD10 Worksheet Patient Problems: Problems Problem Status Onset Primary localized osteoarthritis of left hip Acute Anemia Acute Gastrointestinal bleeding, upper Acute Hypotension Acute
[2017-11-17] MEDS ORDERED: SERTRALINE HCL 50 MG TAB PO SCH (09:00)
[2017-11-17] MEDS ORDERED: METOPROLOL SUCCINATE XR 25 MG TAB PO SCH (09:00)
[2017-11-17] MEDS ORDERED: APIXABAN 5 MG TAB PO SCH (09:00)
--- NOTE | 2017-11-17 09:39 | GOP ---
[f rep st] OPERATIVE REPORT DATE OF OPERATION: 11/16/2017 SURGEON: Leonardo Conti MD IOS DEVELOPER: HUGO Hernandez. ANESTHESIA: Spinal. PREOPERATIVE DIAGNOSIS: Left hip osteoarthritis. POSTOPERATIVE DIAGNOSIS: Left hip osteoarthritis. PROCEDURE PERFORMED: Left total hip arthroplasty with x-ray. FINDINGS: ESTIMATED BLOOD LOSS: 200 cc. INDICATIONS: The patient has progressively worsening arthritis of the hip which has failed medical m anagement. The patient understands the treatment options including continued non-operative care and has selected surgical intervention. The patient has decided to undergo total hip arthroplasty via th e direct anterior approach, understanding the risks of the procedure including, but not limited to, n eurovascular injury, infection, persistent pain, component wear and loosening, deep venous thrombosis , pulmonary embolism, limb length inequality, hip instability (including dislocation), and intra-oper ative fractures. DESCRIPTION OF PROCEDURE: After proper identification of the patient including verification and glenny ing the surgical site, the patient was brought to the operating room and placed in the supine positio n. All bony prominences were well padded. Anesthesia was induced without complication and intraveno us prophylactic antibiotics were administered prior to skin incision. The operative leg was placed in the Trumpf Arch table extension and the well leg in a Yellofin leg ho lder. The patient was prepped and draped in the usual sterile fashion. The C-arm was draped for int ra-operative fluoroscopy to check acetabular position, femoral component position including leg lengt h and femoral offset. Attention was then drawn to surgical exposure of the hip. An incision was made with a #10 Bard Mercedez r blade starting 3 cm lateral and 3 cm distal to the anterior superior iliac spine measuring 8-10 cm and coursing distally toward the greater trochanter. The skin and subcutaneous tissues were divided sharply down to the fascia mae. The fascia mae was incised in line with the skin incision exposing the underlying tensor fascia mae muscle. The muscle was bluntly elevated from the fascia and the f irst extracapsular Cobra retractor was placed laterally at the junction of the superior femoral neck and greater trochanter. The lateral femoral circumflex vessels were identified, cauterized, and divi ded with the Aquamantys bipolar cautery. The deep investing fascia of the TFL was divided to allow p douglas mobilization of the muscle preventing damage during the retraction. The reflected head of the rectus femoris muscle was elevated off the anterior hip capsule and a medial Cobra retractor was plac ed just proximal to the lesser trochanter. The anterior capsulotomy was made sharply from the superolateral acetabulum to the saddle junction of the superior femoral neck and greater trochanter, then coursing inferomedial towards the lesser troc hanter. The retractors were then placed in the intracapsular position for femoral neck osteotomy. C orresponding to pre-operative templating, the osteotomy was made with the oscillating saw carefully p rotecting the greater trochanter and soft tissues. The femoral head was removed from the acetabulum with a corkscrew and confirmed to be severely arthritic with exposed bone, deformity and osteophytes. Similar findings were confirmed in the acetabulum. The Arch table extension was then placed in 40 degrees external rotation. Attention was then drawn to the acetabular preparation. After placement of the anterior and posterio r Cobra retractors outside the labrum and intracapsular, the circumferential labrum was removed sharp ly. The foveal contents were then removed and hemostasis obtained with cautery. The first reamer selected was sized using the removed femoral head. Reaming began with medialization and then commenced in 2 mm increments at 45 degrees of abduction and 15 degrees of anteversion using fluoroscopic navigation. Reaming ceased 1 mm less than the definitive acetabular component and carl esponded to the pre-operative templating. The final acetabular component was inserted using fluorosc opy to achieve proper orientation yielding excellent purchase and stability in the acetabulum. The f inal acetabular liner was then placed and its seating confirmed. Attention was then turned to the femur. The Arch table extension was placed in extension and adducti on, delivering the osteotomized femoral neck into the wound. A 2-pronged femoral elevator was placed at the calcar and another at the tip of the greater trochanter. The posterolateral capsule was rele ased with cautery allowing mobilization of the femur lateral and anterior for preparation. The exter nal rotators were visualized and preserved. A curette and rongeur were used to open the starting poi nt for broaching. Serial broaching started with the #0 broach and ended with the broach that exhibit ed excellent fit in the proximal femur. A change in pitch during mallet strikes was accompanied by t he inability to advance the broach any further. The trial reduction was performed and fluoroscopic n avigation was utilized to check limb length. Adjustments were made to equalize limb length according ly. After the final trials were accepted they were removed and the wound was copiously lavaged. The femo ral component was seated to the same depth as the final broach and the femoral head was impacted onto the clean trunnion. The hip was then reduced for the final time and once more fluoroscopy was used to check that limb length equality was achieved. The wound was irrigated and closed in layers, the fascia mae with 2-0 Quill, the subcutaneous tissue with 2-0 Quill, and the skin with Dermabond. Sterile dressings were applied. Final sharps and spon ge counts were accurate. The patient was then transferred to a hospital bed and [facility] in stable condition. IMPLANTS: Accolade II size 4, 127 acetabular component, Trident II 55 mm, liner is a Trident X3 36 m m. Head is a Biolox Delta 36 mm +2.5. /[id number]/MODL
--- NOTE | 2017-11-17 12:25 | GDS ---
[f rep st] DISCHARGE SUMMARY ADMISSION DIAGNOSIS: Left hip osteoarthritis. DISCHARGE DIAGNOSIS: Left hip osteoarthritis. PROCEDURE: Left total hip arthroplasty. VTE PROPHYLAXIS: Recommend patient resume Eliquis. BRIEF DESCRIPTION OF HOSPITAL STAY: Patient was admitted for an elective joint arthroplasty. The pa zoeynt tolerated the procedure well and has passed physical therapy. The patient was given appropriat e antibiotic prophylaxis and venous thromboembolism prophylaxis. The patient's pain was well control led on oral pain medication, patient was holding down food, and had urinated. Decision was made to d ischarge the patient. The patient was given post-operative prescriptions pre-operatively. PLAN: Follow up as scheduled in Dr. Conti's office 12/08 at 10:45 a.m. /[id number]/MODL
== END 2017-11-17 12:14 | disposition home or self-care (01) | DRG 470 ==
LOC: F3N 11:07
PROVIDERS: ADMIT Orthopaedic Surgery; ATTEND Orthopaedic Surgery
PROC: 0SRB04Z Replacement of Left Hip Joint with Ceramic on Polyethylene Synthetic Substitute, Open Approach (ICD-10-PCS; principal; 2017-11-16 13:00)
DX: M16.12 Unilateral primary osteoarthritis, left hip (principal); M10.9 Gout, unspecified; E78.00 Pure hypercholesterolemia, unspecified; Z87.440 Personal history of urinary (tract) infections
CPT/HCPCS: 97116-GP; 97161-GP; G8978-GP-CI; G8979-GP-CI; G8980-GP-CI; J0171; J0690; J1100; J1885; J2250; J2704; J2795

== ENCOUNTER 2018-02-05 10:29 | Emergency (ER) | payer OTHER ==
--- NOTE | 2018-02-05 11:19 | EDPHY ---
H & P Stated Complaint: Dysuria x 1 day Time Seen by Provider: 02/05/18 10:32 HPI/ROS: 77 yo M presents c/o cloudy and frequent urination. He states it feels similar to the urinary tract infection he had in early December. He states he has had possible fever and body aches. He has been taking Acetaminophen. Patient was treated with Bactrim DS in early December. Review of systems As per HPI-body aches General positive fever no chills no weakness HEENT no eye pain no eye discharge. No eye redness, no sore throat Respiratory no cough, no shortness of breath Cardiac no chest pain, no peripheral edema GI no abdominal pain, no diarrhea, no constipation, no nausea, no vomiting no flank pain, no hematuria, positive dysuria Musculoskeletal no myalgias, no joint pain Heme no easy bruising, no easy bleeding Endo no polyuria, no polydipsia Skin no rashes, no pruritus Neuro no syncope, no dizziness, no headaches Psych is no suicidal ideation, no homicidal ideation Source: Patient Exam Limitations: No limitations - Personal History Current Tetanus Diphtheria and Acellular Pertussis (TDAP): Yes Tetanus Vaccine Date: within 10 yrs - Medical/Surgical History Hx Asthma: No Hx Chronic Respiratory Disease: No Hx Diabetes: No Hx Cardiac Disease: Yes Hx Renal Disease: No Hx Cirrhosis: No Hx Alcoholism: No Hx HIV/AIDS: No Hx Splenectomy or Spleen Trauma: No Other PMH: a-fib, htn, high cholestrol, appy, GI bleed 07/2017, cardiomyopathy, LTHA - Family History Significant Family History: No pertinent family hx - Social History Smoking Status: Former smoker Alcohol Use: Rarely Drug Use: None - Physical Exam Exam: 77-year-old male alert and oriented no acute distress nontoxic appearance, afebrile HEENT atraumatic normocephalic, extraocular muscles intact, anicteric Oropharynx negative for erythema negative exudate, tolerating her own secretions Neck supple no meningismus Lungs clear to auscultation bilaterally Heart regular rate and rhythm without murmur rub or gallop Abdomen nondistended normoactive bowel sounds soft nontender Back no CVA tenderness, no step-offs, no spinal tenderness Extremities no cyanosis clubbing or edema Neuro alert and oriented, no focal deficits Constitutional: Initial Vital Signs Temperature (C) 36.7 C 02/05/18 10:35 Heart Rate 86 02/05/18 10:35 Respiratory Rate 16 02/05/18 10:35 Blood Pressure 101/64 02/05/18 10:35 O2 Sat (%) 96 02/05/18 10:35 O2 Delivery Mode Room Air Allergies/Adverse Reactions: No Known Allergies Allergy (Verified 02/05/18 10:35) Home Medications: Medication Instructions Recorded Diltiazem HCl [Cartia Xt] 08/26/15 Losartan Potassium [Cozaar 25 mg 08/26/15 (*)] Sertraline HCl [Zoloft 50mg (*)] 08/26/15 Apixaban [Eliquis] 05/02/16 Atorvastatin Calcium [Lipitor 40 05/02/16 mg (*)] Bartlett-3 Fatty Acids [Fish Oil 1000 08/08/17 mg (*)] traZODone [traZODONE 50MG (*)] 08/08/17 Cephalexin 500 mg PO QID 7 Days #28 tablet 02/05/18 Medical Decision Making ED Course/Re-evaluation: Patient seen and evaluated for dysuria, fever at home, body aches. Physical exam unremarkable Urinalysis positive for leukocytes Urine culture sent CBC white blood cell count elevated to 13.3 BMP within normal limits Lactate normal Patient's prior urinary culture reviewed from December showed Klebsiella pneumonia greater than 100,000 colonies and at that time he was treated with Bactrim it was also at that time sensitive to ceftriaxone and cefazolin. He feels like it never completely resolved. He was given ceftriaxone 1 g IV piggyback here. Blood cultures were drawn and sent Urine culture sent Impression Urinary tract infection Plan Cephalexin 500 four times daily x7 days Follow-up with primary care physician Differential Diagnosis: Differential diagnosis considered but not limited to: Urinary tract infection, pyelonephritis, urosepsis, bacteremia - Data Points Laboratory Results: 02/05/18 02/05/18 11:45 11:44 POC Sodium 138 mEq/L mEq/L (135-145) POC Potassium 3.5 mEq/L mEq/L (3.3-5.0) POC Chloride 100.0 mEq/L mEq/L (97-110) POC Total CO2 24 mEq/L mEq/L (22-31) POC BUN 19 mg/dL mg/dL (7-23) POC Creatinine 1.1 mg/dL mg/dL (0.7-1.3) POC Glucose 120 mg/dL H mg/dL (70-100) POC Lactic Acid Keegan 0.9 mmol/L mmol/L (0.7-2.1) POC Calcium 9.1 mg/dL mg/dL (8.5-10.4) Medications Given: Discontinued Medications Ceftriaxone Sodium/Dextrose (Rocephin 1 Gm (Premix)) 50 mls @ 100 mls/hr IV EDNOW ONE PRN Reason: Protocol Stop: 02/05/18 11:54 Last Admin: 02/05/18 11:38 Dose: 50 mls Point of Care Test Results: CBC CBC Collection Date 02/05/18 CBC Collection Time 11:29 WBC 13.3 RBC 4.52 HGB 14.3 HCT 42.2 PLT 179 Neut # 11.1 Neut 83.7 LYMPH # 1.0 LYMPH 7.6 Other WBC # 1.2 Other WBC 8.7 MCV 93.4 Chemistry 02/05/18 11:44 POC Sodium 138 mEq/L mEq/L (135-145) POC Potassium 3.5 mEq/L mEq/L (3.3-5.0) POC Chloride 100.0 mEq/L mEq/L (97-110) POC Total CO2 24 mEq/L mEq/L (22-31) POC BUN 19 mg/dL mg/dL (7-23) POC Creatinine 1.1 mg/dL mg/dL (0.7-1.3) POC Glucose 120 mg/dL H mg/dL (70-100) POC Calcium 9.1 mg/dL mg/dL (8.5-10.4) Blood Gas/Lactic Acid-Venous 02/05/18 11:45 POC Lactic Acid Keegan 0.9 mmol/L mmol/L (0.7-2.1) Urine Dip Collection Date 02/05/18 Collection Time 10:40 Specific [place] (1.002-1.030) 1.025 PH (5.0-7.5) 6.0 Leukocytes (Negative) 3+ Nitrites (Negative) Negative Protein (Negative) 2+ Glucose (Negative) Negative Ketones (Negative) Negative Urobilnogen (0.2-1.0 EU) 0.2 Bilirubin (Negative) Negative Blood (Negative) Negative Departure - Departure Disposition: Home, Routine, Self-Care Clinical Impression: Urinary tract infection Condition: Good Instructions: Urinary Tract Infection in Men (ED) Referrals: Salas Santaigo DO [Primary Care Provider] - As per Instructions Prescriptions: Cephalexin 500 mg PO QID 7 Days #28 tablet
[2018-02-05 12:30] VITALS: BP 104/66
== END 2018-02-05 12:33 | disposition home or self-care (01) ==
LOC: CED 10:29
DX: N39.0 Urinary tract infection, site not specified (principal); E78.00 Pure hypercholesterolemia, unspecified; I10 Essential (primary) hypertension; Z87.891 Personal history of nicotine dependence
CPT/HCPCS: 96365; 99284; J0696; 80048-PO; 83605-PO

== ENCOUNTER → 2018-08-23 | Outpatient (CLI) | payer OTHER | LOC: CIMAGING 12:26 ==

== ENCOUNTER → 2018-09-08 | Outpatient (CLI) | payer OTHER | LOC: FIMAGING 13:38 ==